=== PATIENT | female | born 2005 | race Caucasian/White ===

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

== ENCOUNTER 2025-04-16 09:36 | Emergency (ER) | payer BC ==
[2025-04-16 10:06] VITALS: TEMP 97.2
[2025-04-16 10:19] LABS: BASOPHIL % 0.6 % (0.1-1.2); Basophil (Absolute #) 0.04 x10^3/uL (0.01-0.08); Eosinophil (Absolute #) 0.11 x10^3/uL (0.04-0.36); Hematocrit 45.5 % (34.1-44.9); Hemoglobin 15.1 g/dL (11.2-15.7); IMMATURE GRAN # 0.03 x10^3u/L (0.001-0.031); IMMATURE GRAN % 0.4 % (0.001-0.429); Lymphocyte (Absolute #) 2.61 x10^3/uL (1.18-3.74); Mean Corpuscular Hemoglobin 29.3 pg (25.6-32.2); Mean Corpuscular Hgb Concent. 33.2 g/dL (32.2-35.5); Monocyte (Absolute #) 0.36 x10^3/uL (0.24-0.86); NUCLEATED RBC # 0.00 x10^3u/L (0.00-0.012); NUCLEATED RBC % 0.0 % (0.00-0.2); Platelet Count 341 x10^3/uL (182-369); Red Blood Count 5.15 x10^6/uL (3.93-5.22); White Blood Count 6.8 x10^3/uL (3.98-10.04)
--- NOTE | 2025-04-16 10:25 | ERPHSYRPT ---
- History of Present Illness Patient Subjective Stated Complaint: pt reports suicidal ideations Triage Nursing Assessment: Pt was brought to the ER by law enforcement, hypertensive, denies pain, intoxicated and last drink was last night, pulses normal, skin n/w/d, denies chest pain, no difficulty breathing, pt was drinking last night and told her friend that she wanted to jump off of a bridge, pt reports thinking about suicide often lately and called her dad last night and when she was to get off work today they were going to go to a crisis center however her friend called 911, pt reports still being suicidal and has a hx of attempting in the past Physician History: Brought by PD, Apparently the friend could not reach her and had called police to do a wellness check, the patient states that she was drinking alcohol last night, she is not sure if she has been taking her regular home medications, she has a known history of depression, she has has a known history of suicidal thoughts and sees a therapist every 2 weeks, her last hospitalization was 5 weeks ago when she was started on antidepressants, States drinking alcohol every other day, She has a therapist that she sees every 2 weeks, she is scheduled to see her therapist on Monday, no recent changes in any of her medications or therapies Timing/Duration: today Severity of Symptoms-Max: moderate Severity of Symptoms-Current: moderate Context related to: sexual orientation Associated Symptoms: depressed, suicidal ideation Allergies/Adverse Reactions: amoxicillin [From Augmentin] Allergy (Intermediate, Verified 04/16/25 09:43) Rash cephalexin [From Keflex] Allergy (Intermediate, Verified 04/16/25 09:43) Rash clavulanic acid [From Augmentin] Allergy (Intermediate, Verified 04/16/25 09:43) Rash Home Medications: Buspirone HCl 5 mg [Buspar 5 mg] 15 mg PO BID 04/16/25 [History] Lurasidone HCl [Latuda] 60 mg PO DAILY 04/16/25 [History] Semaglutide [Wegovy] 0.25 mg SQ WEEKLY 04/16/25 [History] Testosterone 2 pump TD DAILY 04/16/25 [History] Hx Tetanus, Diphtheria Vaccination/Date Given: Yes Hx Influenza Vaccination/Date Given: No Hx Pneumococcal Vaccination/Date Given: No Travel Risk - International Travel Have you traveled outside of the country in past 3 weeks: No - Emerging Infectious Disease Are you exhibiting symptoms associated with any current EIDs: No - Past Medical History Pertinent Past Medical History: Yes Neurological History: No Pertinent History ENT History: No Pertinent History Cardiac History: No Pertinent History Respiratory History: Sleep Apnea Endocrine Medical History: No Pertinent History Musculoskeletal History: No Pertinent History GI Medical History: No Pertinent History History: No Pertinent History Psycho-Social History: Attention Deficit Disorder, Depression Female Reproductive Disorders: No Pertinent History Other Medical History: DMDD - Past Surgical History Past Surgical History: Yes Neuro Surgical History: No Pertinent History Cardiac: No Pertinent History Respiratory: No Pertinent History Gastrointestinal: No Pertinent History Genitourinary: No Pertinent History Musculoskeletal: No Pertinent History Female Surgical History: No Pertinent History - Female History Hx Now: No - Social History Smoking Status: Current every day smoker How long have you smoked: vapes Exposure to second hand smoke: No Drug Use: marijuana - Social Determinants of Health Will the patient participate in the screening: Yes Do you worry about a steady place to live?: No Do you have any problems with any of the following?: No known problems In the past 12 months,have you had to go without utilities?: No Transportation Issues: No Has anyone in your support network made you feel unsafe?: No Have you or anyone in your house had to go w/o enough food: No - Nursing Vital Signs Nursing Vital Signs: Initial Vital Signs Pulse Rate 102 H 04/16/25 09:40 Respiratory Rate 21 04/16/25 09:40 Blood Pressure 153/104 04/16/25 09:40 O2 Sat by Pulse Oximetry 97 04/16/25 09:40 Pain Scale Pain Intensity 7 - Physical Exam General Appearance: no apparent distress, alert, obese Eyes, Ears, Nose, Throat Exam: normal ENT inspection, moist mucous membranes Neck Exam: normal inspection, non-tender, supple, full range of motion Respiratory Exam: normal breath sounds, lungs clear Cardiovascular Exam: regular rate/rhythm, normal heart sounds Gastrointestinal/Abdominal Exam: soft, normal bowel sounds Extremities Exam: normal inspection, normal range of motion Neurological Exam: alert, normal mood/affect, calm, 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, oriented x 3 Appearance: appropriate appearance Behavior/Eye Contact/Speech: alert & cooperative, good eye contact, normal speech, intoxicated appearance Thoughts/Hallucinations: normal thought pattern Skin Exam: normal color, warm, dry SpO2 Interpretation: normal SpO2: 98 Ordered Tests: Active Orders 24 hr Category Date Time Status Psychiatric Consult STAT Cons 04/16/25 10:02 Active CBC W DIFF Stat Lab 04/16/25 10:15 Completed CMP Stat Lab 04/16/25 10:15 Completed CULTURE,URINE Stat Lab 04/16/25 11:43 Received ETHYL ALCOHOL Stat Lab 04/16/25 10:15 Completed HCG QUALITATIVE, URINE Stat Lab 04/16/25 11:43 Completed LITHIUM Stat Lab 04/16/25 10:15 Completed SALICYLATE Stat Lab 04/16/25 10:15 Completed UA W/RFX UR CULTURE Stat Lab 04/16/25 11:43 Completed Urine Triage Profile Stat Lab 04/16/25 11:43 Completed Medication Summary Discontinued Medications Generic Name Dose Route Start Last Admin Trade Name Freq PRN Reason Stop Dose Admin Buspirone HCl 15 mg 04/16/25 12:15 04/16/25 12:56 Buspirone Hcl 5 Mg Tablet PO 04/16/25 12:16 15 mg ONCE ONE Administration Ibuprofen 600 mg 04/16/25 13:16 04/16/25 13:35 Ibuprofen 600 Mg Tablet PO 04/16/25 13:17 600 mg STAT ONE Administration Lab/Rad Data: Laboratory Result Diagrams 04/16/25 10:15 04/16/25 10:15 Laboratory Results 04/16/25 04/16/25 04/16/25 Range/Units 11:43 11:43 11:43 WBC (3.98-10.04) x10^3/uL RBC (3.93-5.22) x10^6/uL Hgb (11.2-15.7) g/dL Hct (34.1-44.9) % MCV (79.4-94.8) fL MCH (25.6-32.2) pg MCHC (32.2-35.5) g/dL RDW (11.7-14.4) % Plt Count (182-369) x10^3/uL MPV (9.4-12.3) fL Gran % (34.0-71.1) % Immature Gran % (Auto) (0.001-0.429) % Nucleat RBC Rel Count (0.00-0.2) % Eos # (Auto) (0.04-0.36) x10^3/uL Immature Gran # (Auto) (0.001-0.031) x10^3u/L Absolute Lymphs (auto) (1.18-3.74) x10^3/uL Absolute Monos (auto) (0.24-0.86) x10^3/uL Absolute Nucleated RBC (0.00-0.012) x10^3u/L Lymphocytes % (19.3-51.7) % Monocytes % (4.7-12.5) % Eosinophils % (0.7-5.8) % Basophils % (0.1-1.2) % Absolute Granulocytes (1.56-6.13) x10^3/uL Basophils # (0.01-0.08) x10^3/uL Sodium (135-145) mmol/L Potassium (3.5-5.1) mmol/L Chloride (98-107) mmol/L Carbon Dioxide (22-30) mmol/L Anion Gap (5-15) MEQ/L BUN (7-17) mg/dL Creatinine (0.52-1.04) mg/dL Estimated GFR ML/MIN Glucose (74-106) mg/dL Calcium (8.4-10.2) mg/dL Total Bilirubin (0.2-1.3) mg/dL AST (14-36) U/L ALT (0-35) U/L Alkaline Phosphatase (38-126) U/L Serum Total Protein (6.3-8.2) g/dL Albumin (3.5-5.0) g/dL Urine Color Yellow (Yellow) Urine Appearance Clear (Clear) Urine pH 7.0 (4.6-8.0) Ur Specific [place] 1.020 (1.005-1.030) Urine Protein Negative (Negative) Urine Glucose (UA) Negative (Negative) mg/dL Urine Ketones Negative (Negative) Urine Blood Trace (Negative) Urine Nitrite Negative (Negative) Urine Bilirubin Negative (Negative) Urine Urobilinogen 1.0 A (0.2) mg/dL Ur Leukocyte Esterase Moderate A (Negative) U Hyaline Cast (Auto) NONE SEEN (0-2) /LPF Urine Microscopic RBC 6-10 A (0-5) /HPF Urine Microscopic WBC 21-50 A (0-5) /HPF Ur Epithelial Cells None Seen (None Seen) /HPF Urine Bacteria None Seen (None Seen) /HPF Urine Culture Reflexed YES (NO) Urine HCG, Qual NEGATIVE (NEGATIVE) Salicylates (2-20) mg/dL Urine Opiates Level NEGATIVE (NEGATIVE) Ur Methadone NEGATIVE (NEGATIVE) Urine Barbiturates NEGATIVE (NEGATIVE) Ur Phencyclidine (PCP) NEGATIVE (NEGATIVE) Urine Amphetamine NEGATIVE (NEGATIVE) U Benzodiazepine Level NEGATIVE (NEGATIVE) [place] (0.60-1.20) mmol/L Urine Cocaine NEGATIVE (NEGATIVE) Urine Marijuana (THC) NEGATIVE (NEGATIVE) Ethyl Alcohol (0-10) mg/dL 04/16/25 04/16/25 04/16/25 Range/Units 10:15 10:15 10:15 WBC 6.8 (3.98-10.04) x10^3/uL RBC 5.15 (3.93-5.22) x10^6/uL Hgb 15.1 (11.2-15.7) g/dL Hct 45.5 H (34.1-44.9) % MCV 88.3 (79.4-94.8) fL MCH 29.3 (25.6-32.2) pg MCHC 33.2 (32.2-35.5) g/dL RDW 12.8 (11.7-14.4) % Plt Count 341 (182-369) x10^3/uL MPV 9.2 L (9.4-12.3) fL Gran % 53.8 (34.0-71.1) % Immature Gran % (Auto) 0.4 (0.001-0.429) % Nucleat RBC Rel Count 0.0 (0.00-0.2) % Eos # (Auto) 0.11 (0.04-0.36) x10^3/uL Immature Gran # (Auto) 0.03 (0.001-0.031) x10^3u/L Absolute Lymphs (auto) 2.61 (1.18-3.74) x10^3/uL Absolute Monos (auto) 0.36 (0.24-0.86) x10^3/uL Absolute Nucleated RBC 0.00 (0.00-0.012) x10^3u/L Lymphocytes % 38.3 (19.3-51.7) % Monocytes % 5.3 (4.7-12.5) % Eosinophils % 1.6 (0.7-5.8) % Basophils % 0.6 (0.1-1.2) % Absolute Granulocytes 3.67 (1.56-6.13) x10^3/uL Basophils # 0.04 (0.01-0.08) x10^3/uL Sodium 144 (135-145) mmol/L Potassium 4.0 (3.5-5.1) mmol/L Chloride 106 (98-107) mmol/L Carbon Dioxide 27 (22-30) mmol/L Anion Gap 14.5 (5-15) MEQ/L BUN 10 (7-17) mg/dL Creatinine 0.70 (0.52-1.04) mg/dL Estimated GFR 126.1 ML/MIN Glucose 100 (74-106) mg/dL Calcium 9.3 (8.4-10.2) mg/dL Total Bilirubin 0.10 L (0.2-1.3) mg/dL AST 39 H (14-36) U/L ALT 45 H (0-35) U/L Alkaline Phosphatase 66 (38-126) U/L Serum Total Protein 8.4 H (6.3-8.2) g/dL Albumin 4.7 (3.5-5.0) g/dL Urine Color (Yellow) Urine Appearance (Clear) Urine pH (4.6-8.0) Ur Specific [place] (1.005-1.030) Urine Protein (Negative) Urine Glucose (UA) (Negative) mg/dL Urine Ketones (Negative) Urine Blood (Negative) Urine Nitrite (Negative) Urine Bilirubin (Negative) Urine Urobilinogen (0.2) mg/dL Ur Leukocyte Esterase (Negative) U Hyaline Cast (Auto) (0-2) /LPF Urine Microscopic RBC (0-5) /HPF Urine Microscopic WBC (0-5) /HPF Ur Epithelial Cells (None Seen) /HPF Urine Bacteria (None Seen) /HPF Urine Culture Reflexed (NO) Urine HCG, Qual (NEGATIVE) Salicylates < 1.0 L (2-20) mg/dL Urine Opiates Level (NEGATIVE) Ur Methadone (NEGATIVE) Urine Barbiturates (NEGATIVE) Ur Phencyclidine (PCP) (NEGATIVE) Urine Amphetamine (NEGATIVE) U Benzodiazepine Level (NEGATIVE) [place] < 0.2 L (0.60-1.20) mmol/L Urine Cocaine (NEGATIVE) Urine Marijuana (THC) (NEGATIVE) Ethyl Alcohol 56 H (0-10) mg/dL - Progress Progress: improved Progress Note: 04/16/25 15:14 She was medically cleared, consultation with telepsych was obtained and they recommend outpatient follow-up and treatment - Departure Departure Disposition: Home Clinical Impression: Alcohol abuse Depression Qualifiers: Depression Type: major depressive disorder Major depression recurrence: r ecurrent Active/Remission status: currently active Major depression episode severity: moderate Qualified Code(s): F33.1 - Major depressive disorder, recurrent, moderate Condition: Stable Critical Care Time: No Referrals: [facility] Sharda Saldivar [Outside] - Follow up with PCP 2 days Instructions: Alcohol use disorder - Discharge instructions, Depression in adults - ED discharge instructions
[2025-04-16 10:30] LABS: Calcium 9.3 mg/dL (8.4-10.2); Carbon Dioxide 27 mmol/L (22-30); Creatinine 1 0.70 mg/dL (0.52-1.04); EST GLOMERULAR FILTRATION RATE 126.1 ML/MIN; ETHYL ALCOHOL 56 mg/dL (0-10); Glucose 100 mg/dL (74-106); Potassium 4.0 mmol/L (3.5-5.1); SGOT/AST 39 U/L (14-36); SGPT/ALT 45 U/L (0-35); Total Protein 8.4 g/dL (6.3-8.2)
[2025-04-16 11:25] VITALS: RESP 21
[2025-04-16 11:52] LABS: HCG URINE TEST NEGATIVE (NEGATIVE)
[2025-04-16 11:57] LABS: Glucose, Urine Negative (Negative); Protein,Urine Dip Negative (Negative); WBC 21-50 /HPF (0-5)
[2025-04-16 12:07] LABS: Amphetamine,Urine NEGATIVE (NEGATIVE); Barbiturate,Urine NEGATIVE (NEGATIVE); Benzodiazepine,Urine NEGATIVE (NEGATIVE); Cocaine,Urine NEGATIVE (NEGATIVE); Methadone,Urine NEGATIVE (NEGATIVE); Opiate,Urine NEGATIVE (NEGATIVE); PCP,Urine NEGATIVE (NEGATIVE); THC,Urine NEGATIVE (NEGATIVE)
[2025-04-16] MEDS: BUSPAR 5 MG PO ONE (12:56)
[2025-04-16] MEDS ORDERED: MOTRIN 600 MG ONE (13:35)
[2025-04-16] MEDS: MOTRIN 600 MG PO ONE (13:35)
[2025-04-16 15:18] VITALS: O2SAT 98
[2025-04-16 15:52] VITALS: BP 112/65; PULSE 82
== END 2025-04-16 15:52 | disposition home or self-care (01) ==
LOC: ED 09:36
DX: F33.1 Major depressive disorder, recurrent, moderate (principal); F10.10 Alcohol abuse, uncomplicated; Y90.2 Blood alcohol level of 40-59 mg/100 ml; R45.851 Suicidal ideations; Z79.85 Long-term (current) use of injectable non-insulin antidiabetic drugs; Z79.899 Other long term (current) drug therapy; Z72.0 Tobacco use
CPT/HCPCS: 36415; 80053; 80178; 80179; 80307; 81001; 81025; 82077; 85025; 87086; 99285; Q3014